=== PATIENT | male | born 1990 | race Caucasian/White ===

== ENCOUNTER 2017-01-15 15:42 | Emergency (ER) | payer OTHER ==
[~2017-01-15] VITALS: Ht 182.9 cm; Wt 99.8 kg
[2017-01-15] MEDS ORDERED: ADACEL/BOOSTRIX VACCINE (DIPHTH/PERTUSS/ACELL/TETANUS)0.5ML SYR (90715) IM ONE (18:15)
[2017-01-15] MEDS ORDERED: CEPHALEXIN 500 MG CAP PO ONE (18:15)
[2017-01-15] MEDS ORDERED: LIDOCAINE 1% MDV 20ML VIAL SC ONE (18:15)
--- NOTE | 2017-01-15 19:08 | REP ---
RIGHT KNEE: HISTORY: Pain after trauma. COMPARISON: None. FINDINGS: The compartments are symmetric and relatively well maintained. There is no acute fracture or destructive osseous lesion. There is no plain radiographic evidence of radiopaque foreign body. Signed by Ludwin Wilcox DO 01/15/2017 07:18 P
[2017-01-15] MEDS ORDERED: KEFL500C7 PO (19:52)
[2017-01-15] MEDS ORDERED: ULTR50TA PO (20:00)
[2017-01-15 20:18] VITALS: BP 108/72
== END 2017-01-15 20:23 | disposition home or self-care (01) ==
LOC: M ED 18:19
DX: S81.012A Laceration without foreign body, left knee, initial encounter (principal); W26.8XXA Contact with other sharp object(s), not elsewhere classified, initial encounter; Y92.009 Unspecified place in unspecified non-institutional (private) residence as the place of occurrence of the external cause; Y93.9 Activity, unspecified; Y99.9 Unspecified external cause status

== ENCOUNTER → 2022-10-02 | Outpatient (REF) | payer OTHER ==
[~2022-10-02] MED LIST: KEFL500C17 PO; ULTR50TA8 PO
== END ==
LOC: M LAB REF 16:21
PROVIDERS: ATTEND Physician Assistant
DX: R51.9 Headache, unspecified (principal); R52 Pain, unspecified